=== PATIENT | female | born 1990 | race Hispanic/Latino ===

== ENCOUNTER 2017-07-15 14:11 | Emergency (ER) | payer BC, MEDICAID | END 2017-07-15 15:10 | disposition home or self-care (01) | LOC: EDH 14:11 | DX: J01.00 Acute maxillary sinusitis, unspecified (principal) ==

== ENCOUNTER 2017-10-04 19:31 | Emergency (ER) | payer BC | END 2017-10-04 20:27 | disposition home or self-care (01) | LOC: EDH 19:31 | DX: S40.862A Insect bite (nonvenomous) of left upper arm, initial encounter (principal); S40.861A Insect bite (nonvenomous) of right upper arm, initial encounter; Z98.890 Other specified postprocedural states; W57.XXXA Bitten or stung by nonvenomous insect and other nonvenomous arthropods, initial encounter; Y93.89 Activity, other specified; Y92.89 Other specified places as the place of occurrence of the external cause; Y99.8 Other external cause status | CPT/HCPCS: 99282 ==